=== PATIENT | female | born 1995 | race Caucasian/White ===

== ENCOUNTER 2017-07-04 23:20 | Emergency (ER) | END 2017-07-05 00:51 | disposition home or self-care (01) ==

== ENCOUNTER 2018-12-14 19:39 | Emergency (ER) | payer OTHER ==
[~2018-12-14] VITALS: Ht 154.9 cm; Wt 75.8 kg
[~2018-12-14 19:39] MED LIST: ACET500C5 PO; FLUT9.9S NASAL; IBUP-1542 PO; ONDA4TAB14 PO; PHEN177S43 MT; PRENAT PO
[2018-12-14 19:53] VITALS: Ht 154.9 cm; Wt 75.8 kg
[2018-12-14 23:20] VITALS: BP 113/67; PULSE 75; RESP 20
== END 2018-12-14 23:20 | disposition home or self-care (01) ==
LOC: FTE 19:39
DX: O21.9 Vomiting of pregnancy, unspecified (principal); R10.2 Pelvic and perineal pain; Z3A.13 13 weeks gestation of pregnancy
CPT/HCPCS: 36415; 76801; 81001; 84702; 85025; 86900; 86901; Z7502